=== PATIENT | female | born 1940 | race Caucasian/White ===

== ENCOUNTER → 2017-01-12 | Outpatient (CLI) | payer MEDICARE | END | disposition home or self-care (01) | LOC: PCVCCLINIC 12:00 | PROVIDERS: ATTEND Internal Medicine | DX: I12.9 Hypertensive chronic kidney disease with stage 1 through stage 4 chronic kidney disease, or unspecified chronic kidney disease (principal); N18.4 Chronic kidney disease, stage 4 (severe); E78.5 Hyperlipidemia, unspecified; R73.03 Prediabetes; Z90.721 Acquired absence of ovaries, unilateral; Z90.5 Acquired absence of kidney; Z90.710 Acquired absence of both cervix and uterus | CPT/HCPCS: 80061; 93005; G0463 ==